=== PATIENT | male | born 1965 | race Caucasian/White ===

== ENCOUNTER → 2017-05-15 | Outpatient (CLI) | payer BC ==
[~2017-05-15] MED LIST: ASPI-428 PO; ATEN50TA8 PO; ATOR-22 PO; CARB1CAP11 PO; LISI-788 PO; OMEG10007 PO
--- NOTE | 2017-05-15 10:56 | DIAGNOSTIC IMAGING REPORT ---
THORACIC SPINE 3 VIEWS ROUTINE HISTORY: 51 years-old Male M54.9 DORSALGIA COMPARISON: Chest radiographs 01/13/2016 TECHNIQUE: 5 views of the thoracic spine FINDINGS: Multilevel bridging anterior endplate osteophytes are seen compatible with DISH. These findings extend into the imaged cervical spine as well. The vertebral body heights are well-maintained without compression deformity. Alignment is satisfactory. No acute fracture or dislocation. The imaged lung smith are clear with hypoinflation. IMPRESSION: 1. No acute fracture or dislocation. 2. Multilevel bridging anterior endplate osteophytes are seen compatible with DISH The above report was generated using voice recognition software. It may contain grammatical, syntax or spelling errors. Electronically signed by: Patrick Dewitt M.D. 05/15/2017 10:55 AM Dictated Date/Time: 05/15/2017 10:52 AM
== END | disposition home or self-care (01) ==
LOC: C.RAD1850 09:59
PROVIDERS: ATTEND Student in an Organized Health Care Education/Training Program
DX: M54.9 Dorsalgia, unspecified (principal)